=== PATIENT | male | born 1995 | race Caucasian/White ===

== ENCOUNTER 2017-10-18 01:45 | Emergency (ER) | payer OTHER ==
[2017-10-18] MEDS ORDERED: Rabies Immune Globulin 10 ML* 150 UNIT/ML VIAL IM ONE (03:14)
[2017-10-18] MEDS ORDERED: Rabies VIRUS VACCINE (Imovax)* 2.5 UNIT/ML 1 ML IM ONE (03:14)
--- NOTE | 2017-10-18 03:44 | ED ---
Bite Injury/Animal - HPI Summary HPI Summary: 22-year-old male presents with potential rabies exposure today. He states that 2 nights ago there was a bat in a different room in the house. He states he left the room and went to bed closing the bat in the room. He states he fell asleep. States there is a hole under his door. He states that he went about his day and did not check if the bat was there when he woke up. He states he came home tonight and was watching TV when he got noticed a bat in his room. He that the bat did not bite him while he is awake. He has no medical conditions. His tetanus is up-to-date. - History of Current Complaint Chief Complaint: EDGeneral Stated Complaint: BAT EXPOSURE Time Seen by Provider: 10/18/17 01:58 Pain Intensity: 0 - Allergies/Home Medications Allergies/Adverse Reactions: Allergies Allergy/AdvReac Type Severity Reaction Status Date / Time No Known Allergies Allergy Verified 10/18/17 01:53 PMH/Surg Hx/FS Hx/Imm Hx Endocrine/Hematology History: Denies: Hx Anticoagulant Therapy Cardiovascular History: Denies: Hx Myocardial Infarction Infectious Disease History: No Infectious Disease History: Denies: Traveled Outside the [place] in Last 30 Days - Family History Known Family History: Negative: Diabetes - Social History Alcohol Use: Rare Substance Use Type: Reports: None Smoking Status (MU): Light Every Day Tobacco Smoker Review of Systems Negative: Fever Negative: Chest Pain Negative: Shortness Of Breath Positive: Other - rabies exposure? All Other Systems Reviewed And Are Negative: Yes Physical Exam Triage Information Reviewed: Yes Vital Signs On Initial Exam: Initial Vitals Temp Pulse Resp BP Pulse Ox 97.3 F 86 16 133/81 98 10/18/17 01:45 10/18/17 01:45 10/18/17 01:45 10/18/17 01:45 10/18/17 01:45 Vital Signs Reviewed: Yes Appearance: Positive: Well-Appearing Skin: Positive: Warm, Dry Head/Face: Positive: Normal Head/Face Inspection Eyes: Positive: Normal, Conjunctiva Clear ENT: Positive: Pharynx normal Respiratory/Lung Sounds: Positive: Clear to Auscultation, Breath Sounds Present Cardiovascular: Positive: Normal, RRR Musculoskeletal: Positive: Normal Neurological: Positive: Normal Psychiatric: Positive: Normal Diagnostics - Vital Signs Vital Signs Temp Pulse Resp BP Pulse Ox 10/18/17 01:45 97.3 F 86 16 133/81 98 - Laboratory Lab Statement: Any lab studies that have been ordered have been reviewed, and results considered in the medical decision making process. Bite Injury Course/Dx - Course Course Of Treatment: 22-year-old male presents with potential rabies exposure today. He states that 2 nights ago there was a bat in a different room in the house. He states he left the room and went to bed closing the bat in the room. He states he fell asleep. States there is a hole under his door. He states that he went about his day and did not check if the bat was there when he woke up. He states he came home tonight and was watching TV when he got noticed a bat in his room. He that the bat did not bite him while he is awake. He has no medical conditions. His tetanus is up-to-date. on exam normal physical exam. discussed with health department and they said to do immunoglobulin and rabies series which was given. patient understand and agrees with plan. - Diagnoses Differential Diagnosis/HQI/PQRI: Positive: Rabies Exposure Provider Diagnosis: Exposure to bat without known bite Discharge - Sign-Out/Discharge Documenting (check all that apply): Patient Departure - Discharge Plan Condition: Good Disposition: HOME Patient Education Materials: Rabies Vaccine (ED) Referrals: No Primary Care Phys,NOPCP [Primary Care Provider] - Additional Instructions: Follow up with health department day 3,7,14 Return to ED if develop any new or worsening symptoms - Billing Disposition and Condition Condition: GOOD Disposition: Home
[2017-10-18] MEDS ORDERED: Rabies Vaccine (RabAvert)* 2.5 UNITS VIAL IM ONE (04:00)
[2017-10-18 04:59] VITALS: BP 139/94
== END 2017-10-18 04:57 | disposition home or self-care (01) ==
LOC: ED 01:45
DX: Z20.3 Contact with and (suspected) exposure to rabies (principal); F17.210 Nicotine dependence, cigarettes, uncomplicated
CPT/HCPCS: 90375; 90471; 90675; 99282

== ENCOUNTER 2018-07-05 00:04 | Emergency (ER) | payer OTHER ==
[2018-07-05] MEDS ORDERED: Citalopram TAB* 40 MG PO ONE ×2 (00:18)
--- NOTE | 2018-07-05 00:19 | ED ---
Medical Screening - HPI Summary HPI Summary: 23 year old male presents for two dose of medication today. He states he ran out of his Celexa and has a prescription waiting for him at [facility] on Friday which he can not get tomorrow as they are not open. He states the pharmacy was closed today to pick it up. He states he just missed the dose today. He denies any flulike illness. Denies any fevers or chills. No bowel pain. No nausea or vomiting. Denies any suicidal or homicidal thoughts. he has been on this medication for a long time. He is requesting a dose for today and a dose for tomorrow till the pharmacy opens. - History of Current Complaint Chief Complaint: EDMedicationRefill Stated Complaint: MED REFILL PER PT Time Seen by Provider: 07/05/18 00:13 PMH/Surg Hx/FS Hx/Imm Hx Endocrine/Hematology History: Denies: Hx Anticoagulant Therapy Cardiovascular History: Denies: Hx Myocardial Infarction Infectious Disease History: No Infectious Disease History: Denies: Traveled Outside the [place] in Last 30 Days - Family History Known Family History: Negative: Diabetes - Social History Alcohol Use: Rare Substance Use Type: Reports: None Smoking Status (MU): Light Every Day Tobacco Smoker Review of Systems Negative: Fever Negative: Chest Pain Negative: Shortness Of Breath Psychological: Other - medication refill Negative: Anxious, Depressed All Other Systems Reviewed And Are Negative: Yes Physical Exam Triage Information Reviewed: Yes Vital Signs On Initial Exam: Initial Vitals Temp Pulse Resp BP Pulse Ox 99.4 F 83 16 132/92 97 07/05/18 00:05 07/05/18 00:05 07/05/18 00:05 07/05/18 00:05 07/05/18 00:05 Vital Signs Reviewed: Yes Appearance: Positive: Well-Appearing Skin: Positive: Warm, Dry Head/Face: Positive: Normal Head/Face Inspection Eyes: Positive: Normal, Conjunctiva Clear ENT: Positive: Pharynx normal Respiratory/Lung Sounds: Positive: Clear to Auscultation, Breath Sounds Present Cardiovascular: Positive: Normal, RRR Abdomen Description: Positive: Nontender, Soft Bowel Sounds: Positive: Present Musculoskeletal: Positive: Normal Neurological: Positive: Normal Psychiatric: Positive: Normal Diagnostics - Vital Signs Vital Signs Temp Pulse Resp BP Pulse Ox 07/05/18 00:05 99.4 F 83 16 132/92 97 - Laboratory Lab Statement: Any lab studies that have been ordered have been reviewed, and results considered in the medical decision making process. Course/Dx - Course Course Of Treatment: 23 year old male presents for two dose of medication today. He states he ran out of his Celexa and has a prescription waiting for him at [facility] on Friday which he can not get tomorrow as they are not open. He states the pharmacy was closed today to pick it up. He states he just missed the dose today. He denies any flulike illness. Denies any fevers or chills. No bowel pain. No nausea or vomiting. Denies any suicidal or homicidal thoughts. he has been on this medication for a long time. He is requesting a dose for today and a dose for tomorrow till the pharmacy opens. on exam physical exam is normal. Gave dosed for today and tomorrow. Told to bulk picker the prescription. Warned if develop any suicidal or homicidal thoughts to return. Patient understands agrees with plan. - Diagnoses Provider Diagnoses: Encounter for medication refill Discharge - Sign-Out/Discharge Documenting (check all that apply): Patient Departure Patient Received Moderate/Deep Sedation with Procedure: No - Discharge Plan Condition: Good Disposition: HOME Referrals: No Primary Care Phys,NOPCP [Primary Care Provider] - Additional Instructions: return to ED if develop any new or worsening symptoms - Billing Disposition and Condition Condition: GOOD Disposition: Home
[2018-07-05 00:35] VITALS: BP 0/0
== END 2018-07-05 00:33 | disposition home or self-care (01) ==
LOC: ED 00:04
DX: Z76.0 Encounter for issue of repeat prescription (principal); F17.210 Nicotine dependence, cigarettes, uncomplicated
CPT/HCPCS: 99282